=== PATIENT | male | born 1980 | race Caucasian/White ===

== ENCOUNTER 2019-10-26 17:52 | Emergency (ER) | payer BC, OTHER ==
[2019-10-26] MEDS ORDERED: diphenhydrAMINE HCL 25 MG CAPSULE (FP) PO ONE ×2 (18:40→19:04)
[2019-10-26] MEDS ORDERED: ACETAMINOPHEN 500 MG TABLET (FP) PO ONE (18:40)
--- NOTE | 2019-10-26 18:51 | PDOC ---
History of Present Illness - General History Source: Patient Exam Limitations: No Limitations - History of Present Illness Initial Comments: 10/26/19 18:42 39-year-old gentleman history of stage III melanoma status post resection and lymph node resections in the R axilla - Patient notes that he was in his usual state of health until several hours ago when he was departing his sons basketball game and he became very itchy and noticed a cramping/pulling sensation in his Right arm. The patient also endorsed feeling diffusely itchy with hive like rahes as well as redness under his R arm/axxilla, Patient also endorses a mild diffuse headache. Patient took a temperature at home and noticed it was 99. The patient denies any cough, shortness of breath, chest pain, abdominal pain, nausea, vomiting, The patient did have a URI several days ago and was given a Z-Sawyer which she has since completed. He denies any other new medications, new deodorants or soaps or lotions. ROS: Constitutional - no reported Fever, Chills, HEENT: no reported vision changes, sore throat Respiratory: no reported cough, sob, hemoptysis Cardiac: no reported chest pain, palpitations, light headedness, leg swelling Abd/GI: no reported abd pain, nausea, vomiting, blood per rectum, melena, diarrhea : no reported dysuria, frequency, discharge Musculskelatal - no reported back pain, joint swelling skin - +rash/itching no reported bruising, erythema neurological: +headache no reported numbness, focal weakness, tingling, ataxia, hematologic: no reported easy bruising, easy bleeding Exam: GENERAL: The patient is awake, alert, and fully oriented, Nontoxic - in no acute distress. HEAD: Normocephalic, atraumatic. EYES: extraocular movements intact, sclera anicteric, conjunctiva clear. ENT: Normal voice, Moist mucous membranes. NECK: Normal range of motion, supple LUNGS: Breath sounds equal, clear to auscultation bilaterally. No wheezes, no rhonchi, no rales. HEART: Regular rate and rhythm, normal S1 and S2 without murmur, rub or gallop. ABDOMEN: Soft, nontender, No guarding, no rebound. No CVA tenderness EXTREMITIES: Normal range of motion, no edema. NEUROLOGICAL: No facial assymetry, Normal speech, PSYCH: Normal mood, normal affect. SKIN: lacy erythemadous rash under the R axilla/inferior aspect of R upper arm without induration, non tender, not warm to touch. occasional raised plaques on torso/L upper arm. unclear cause of rash - no new exposures to suggest allergic reaction erythemadous area under his axilla does not appear inurated/warm to touch to sugest cellulitis. the Is this a multiple visit Asthma Patient?: No <Kyrie Mcconnell - Last Filed: 10/26/19 18:42> <Stevie Jacob - Last Filed: 10/26/19 20:34> - General Chief Complaint: Pain Stated Complaint: RT ARM CRAMPING, RED ARRIAGA, Time Seen by Provider: 10/26/19 18:40 Past History - Past Medical History Anemia: No Asthma: No Cancer: No Cardiac Disorders: No CVA: No COPD: No CHF: No Dementia: No Diabetes: No GI Disorders: No Disorders: No HTN: No Hypercholesterolemia: No Liver Disease: No Seizures: No Thyroid Disease: No - Surgical History Abdominal Surgery: No Appendectomy: Yes Cardiac Surgery: No Cholecystectomy: No Lung Surgery: No Neurologic Surgery: No Orthopedic Surgery: No - Psycho Social/Smoking Cessation Hx Smoking History: Never smoked Hx Alcohol Use: Yes (SOCIALLY) Drug/Substance Use Hx: No Substance Use Type: Alcohol Hx Substance Use Treatment: No <Kyrie Mcconnell - Last Filed: 10/26/19 18:42> <Stevie Jacob - Last Filed: 10/26/19 20:34> - Past Medical History Allergies/Adverse Reactions: Allergies Allergy/AdvReac Type Severity Reaction Status Date / Time No Known Allergies Allergy Unverified 04/22/14 09:09 Home Medications: Ambulatory Orders No Home Medications 0 dose .ROUTE UTDICT 04/22/14 *Physical Exam - Vital Signs Last Vital Signs Temp Pulse Resp BP Pulse Ox 98.6 F 89 20 134/86 95 10/26/19 17:59 10/26/19 17:59 10/26/19 17:59 10/26/19 17:59 10/26/19 17:59 <Stevie Jacob - Last Filed: 10/26/19 20:34> ED Treatment Course - LABORATORY CBC & Chemistry Diagram: 10/26/19 19:29 10/26/19 19:29 - ADDITIONAL ORDERS Additional order review: Laboratory Results 10/26/19 19:29 Sodium 136 Potassium 3.6 Chloride 103 Carbon Dioxide 24 Anion Gap 9 BUN 20.0 H Creatinine 1.1 Est GFR (CKD-EPI)AfAm 96.81 Est GFR (CKD-EPI)NonAf 83.53 Random Glucose 140 H Calcium 10.0 Total Bilirubin 1.9 H AST 32 ALT 97 H Alkaline Phosphatase 64 Total Protein 7.3 Albumin 4.7 10/26/19 19:29 RBC 5.92 H MCV 94.0 MCHC 33.6 RDW 12.8 MPV 9.3 Neutrophils % 84.6 H Lymphocytes % 8.1 Monocytes % 5.7 Eosinophils % 0.2 Basophils % 1.4 - Medications Given in the ED: ED Medications Discontinued Medications Generic Name Dose Route Start Last Admin Trade Name Magedq PRN Reason Stop Dose Admin Acetaminophen 1,000 mg 10/26/19 18:40 10/26/19 19:08 Tylenol - PO 10/26/19 18:41 1,000 mg ONCE ONE Administration Diphenhydramine HCl 25 mg 10/26/19 18:40 10/26/19 19:08 Benadryl - PO 10/26/19 18:41 25 mg ONCE ONE Administration <Stevie Jacob - Last Filed: 10/26/19 20:34> Discharge <Kyrie Mcconnell - Last Filed: 10/26/19 18:42> - Discharge Information Problems reviewed: Yes <Stevie Jacob - Last Filed: 10/26/19 20:34> - Discharge Information Clinical Impression/Diagnosis: Allergic reaction Qualifiers: Encounter type: initial encounter Qualified Code(s): T78.40XA - Allergy, unspecified, initial encounter Condition: Good - Patient Discharge Instructions Additional Instructions: Return to ER if rash worsens. Use Benadryl 50mg every six hours for the rash. Please bring your lab results to your primary care provider for follow-up
[2019-10-26 18:52] VITALS: BP 134/86; PULSE 89; TEMP 98.6; BMI 27.8
[2019-10-26] MEDS ORDERED: ACETAMINOPHEN 500 MG TABLET (FP) ONE (19:04)
[2019-10-26 19:37] LABS: BASO % 1.4 % (0-2.0); EOS % 0.2 % (0-4.5); HEMATOCRIT 55.6 % (35.4-49); HEMOGLOBIN 18.7 GM/dl (11.7-16.9); LYMPH % 8.1 % (8-40); MCH 31.5 pg (25.7-33.7); MCHC 33.6 g/dl (32.0-35.9); MEAN PLT VOLUME 9.3 fl (7.5-11.1); MONO % 5.7 % (3.8-10.2); NEUT % 84.6 % (42.8-82.8); PLATELET COUNT 175 K/MM3 (134-434); RBC 5.92 M/mm3 (4.00-5.60); RDW 12.8 % (11.9-15.9); WHITE BLOOD COUNT 15.5 K/mm3 (4.0-10.8)
[2019-10-26 19:46] LABS: ALBUMIN 4.7 g/dl (3.4-5.0); BILIRUBIN,TOTAL 1.9 mg/dl (0.2-1); CREATININE 1.1 mg/dl (0.55-1.3); POTASSIUM 3.6 mmol/L (3.5-5.1); TOT PROT 7.3 g/dl (6.4-8.2)
[2019-10-26] MEDS ORDERED: SODIUM CHLORIDE 0.9% 500 ML INFUS.BAG IV ONE (20:38)
== END 2019-10-26 21:49 | disposition home or self-care (01) ==
LOC: FER 17:52
PROC: 3E0337Z Introduction of Electrolytic and Water Balance Substance into Peripheral Vein, Percutaneous Approach (ICD-10-PCS; principal; 2019-10-26)
DX: T78.40XA Allergy, unspecified, initial encounter (principal)
CPT/HCPCS: 36415; 80053; 85025; 99283-25

== ENCOUNTER 2021-07-03 13:51 | Emergency (ER) | payer OTHER, BC ==
[2021-07-03 14:01] VITALS: BP 153/95; PULSE 88; TEMP 98.3; BMI 28.8
[2021-07-03] MEDS ORDERED: ACETAMINOPHEN 1000 MG/100 ML VIAL (NON FORMULARY) IVPB ONE (14:10)
[2021-07-03] MEDS ORDERED: SODIUM CHLORIDE 0.9% 500 ML INFUS.BAG IV ONE (14:10)
[2021-07-03] MEDS ORDERED: FAMOTIDINE 20 MG/50 ML IVPB 20 MG/50 ML MG IVPB ONE ×2 (14:43→14:52)
[2021-07-03 14:48] LABS: BASO % 3.1 % (0-2.0); EOS % 0.8 % (0-4.5); HEMATOCRIT 52.5 % (35.4-49); HEMOGLOBIN 17.7 GM/dl (11.7-16.9); LYMPH % 17.1 % (8-40); MCH 31.4 pg (25.7-33.7); MCHC 33.7 g/dl (32.0-35.9); MEAN PLT VOLUME 8.4 fl (7.5-11.1); MONO % 13.5 % (3.8-10.2); NEUT % 65.5 % (42.8-82.8); PLATELET COUNT 165 10^3/uL (134-434); RBC 5.64 M/mm3 (4.00-5.60); RDW 12.5 % (11.9-15.9); WHITE BLOOD COUNT 8.6 K/mm3 (4.0-10.8)
[2021-07-03] MEDS ORDERED: ACETAMINOPHEN INJECTION 100 ML IVPB ONE (14:53)
[2021-07-03 15:04] LABS: ALBUMIN 4.3 g/dl (3.4-5.0); BILIRUBIN,TOTAL 1.4 mg/dl (0.2-1); CALCIUM 9.6 mg/dl (8.5-10); TOT PROT 7.5 g/dl (6.4-8.2)
[2021-07-03] MEDS ORDERED: KETOROLAC TROMETHAMINE 15 MG/ML VIAL IVPUSH ONE (18:36)
[2021-07-03] MEDS ORDERED: SODIUM CHLORIDE 0.9% 1000 ML INFUS.BAG IV ONE (18:36)
[2021-07-03] MEDS ORDERED: KETOROLAC TROMETHAMINE 15 MG/ML VIAL ONE (18:44)
[2021-07-03] MEDS ORDERED: metroNIDAZOLE 500 MG TABLET PO ONE (19:54)
[2021-07-03] MEDS ORDERED: metroNIDAZOLE 250 MG TABLET ONE (19:56)
== END 2021-07-03 20:07 | disposition home or self-care (01) ==
LOC: FER 13:51
PROC: 3E033GC Introduction of Other Therapeutic Substance into Peripheral Vein, Percutaneous Approach (ICD-10-PCS; principal; 2021-07-03)
DX: K36 Other appendicitis (principal)
CPT/HCPCS: 36415; 74177-TC; 76705-TC; 80053; 81003; 82272; 82550; 82553; 83605; 83690; 84484; 85025; 87086; 93005; 96365; 96375; 99285-25; J0131; Q9967